=== PATIENT | female | born 1985 | race Asian ===

== ENCOUNTER 2021-08-11 23:50 | Observation (INO) | payer MEDICAID ==
[~2021-08-11] VITALS: Ht 160 cm; Wt 79.4 kg
[2021-08-12] MEDS ORDERED: MORPHINE SULFATE 4 MG/ML SYR IVP PRN (00:45)
[2021-08-12] MEDS ORDERED: LACTATED RINGERS 1,000 ML IV ONE (00:45)
[2021-08-12] MEDS ORDERED: cefTRIAXone 1,000 MG VIAL ONE (01:05)
--- NOTE | 2021-08-12 07:45 | NUR ---
PATIENT HAS BEEN SCREENED AND CATEGORIZED LOW NUTRITION RISK. PATIENT WILL BE SEEN WITHIN 7 DAYS OF ADMISSION. 08/18/[address]
== END 2021-08-12 08:25 | disposition home or self-care (01) ==
LOC: MFCC 23:50
PROVIDERS: ADMIT Obstetrics & Gynecology; ATTEND Obstetrics & Gynecology
DX: O26.892 Other specified pregnancy related conditions, second trimester (principal); R10.9 Unspecified abdominal pain; Z3A.26 26 weeks gestation of pregnancy
CPT/HCPCS: 96365; 96375; G0378; J0696; J2270; J7060